=== PATIENT | male | born 2000 | race Caucasian/White ===

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

== ENCOUNTER 2020-09-01 09:46 | Emergency (ER) | payer OTHER ==
[~2020-09-01 09:46] MED LIST: PENVEE K 500 M500 MG PO; PROTONIX40 MG PO; SILVADENE CREAM20 GM TOP
[2020-09-01 11:08] LABS: HEMOGLOBIN 16.2 gm/dl (14.0-17.5); RED BLOOD COUNT 5.1 M/UL (4.20-5.50); WHITE BLOOD COUNT 7.2 K/UL (4.5-11.0)
[2020-09-01 11:30] LABS: BUN/CREATININE RATIO 15 (0-10)
[2020-09-01] MEDS ORDERED: PROAIR HFA8.5 GM INH (11:50)
== END 2020-09-01 12:04 | disposition home or self-care (01) ==
LOC: ER1 09:46
PROVIDERS: Physician Assistant
DX: J45.909 Unspecified asthma, uncomplicated (principal); Z76.0 Encounter for issue of repeat prescription; Z20.822 Contact with and (suspected) exposure to COVID-19
CPT/HCPCS: 71045; 80053; 85025; 99285; U0002

== ENCOUNTER → 2021-11-22 | Outpatient (CLI) | payer OTHER ==
[~2021-11-22] MED LIST changes: +PROAIR HFA8.5 GM INH
== END ==
LOC: EXRD 09:57
DX: M54.50 Low back pain, unspecified (principal)
CPT/HCPCS: 72110

== ENCOUNTER 2022-01-05 18:13 | Emergency (ER) | payer OTHER ==
[2022-01-05 19:31] LABS: HEMOGLOBIN 15.4 gm/dl (14.0-17.5); RED BLOOD COUNT 4.76 M/UL (4.20-5.50); WHITE BLOOD COUNT 9.3 K/UL (4.5-11.0)
[2022-01-05 19:54] LABS: BUN/CREATININE RATIO 22 (0-10)
== END 2022-01-05 22:39 | disposition home or self-care (01) ==
LOC: ER1 18:13
PROVIDERS: Physician Assistant
DX: R07.9 Chest pain, unspecified (principal); F17.290 Nicotine dependence, other tobacco product, uncomplicated
CPT/HCPCS: 71045; 80053; 82550; 82553; 84484; 85025; 85379; 93005; 96374; 99285; J1885